=== PATIENT | female | born 1945 | race Caucasian/White ===

== ENCOUNTER 2018-12-01 19:26 | Inpatient (IN) | payer MEDICARE ==
[2018-12-01] MEDS ORDERED: morphine 4 MG/ML VIAL IV (22:33)
[2018-12-01 22:43] LABS: ADD MAN DIFF? NO
[2018-12-01 22:47] LABS: BASOPHILS % 0.5 % (0.0-2.0); EOSINOPHILS # 0.1 10^3/ul (0.0-0.5); EOSINOPHILS % 0.7 % (0.0-7.0); HEMATOCRIT 35.6 % (37.0-47.0); HEMOGLOBIN 11.3 g/dl (12.0-16.0); LYMPHOCYTES # 2.3 10^3/ul (0.8-2.9); LYMPHOCYTES % 29.6 % (15.0-51.0); MEAN CORPUSCULAR HEMOGLOBIN 26.2 pg (29.0-33.0); MEAN CORPUSCULAR HGB CONC 31.7 g/dl (32.0-37.0); MEAN CORPUSCULAR VOLUME 82.6 fl (82.0-101.0); MEAN PLATELET VOLUME 9.3 fl (7.4-10.4); MONOCYTE # 0.9 10^3/ul (0.3-0.9); MONOCYTES % 11.6 % (0.0-11.0); NEUTROPHIL # 4.4 10^3/ul (1.6-7.5); NEUTROPHILS % 57.3 % (39.0-77.0); PLATELET COUNT 404 10^3/UL (140-415); RED BLOOD COUNT 4.31 10^6/ul (4.20-5.40); RED CELL DISTRIBUTION WIDTH 13.1 % (11.5-14.5)
[2018-12-01 22:47] LABS: WHITE BLOOD COUNT 7.6 10^3/ul (4.8-10.8)
[2018-12-01] MEDS: LORAZEPAM 2 MG INJ IV (22:49)
[2018-12-01] MEDS: ONDANSETRON 4 MG INJ IV (22:49)
[2018-12-01 22:52] LABS: INR 1.01; PROTIME 13.4 Sec (11.9-14.9)
[2018-12-01 22:53] LABS: PARTIAL THROMBOPLASTIN TIME 31.7 Sec (23.0-35.0)
[2018-12-01 23:00] LABS: ANION GAP 13 (5-13); BLOOD UREA NITROGEN 16 mg/dl (7-20); CALCIUM 10.5 mg/dl (8.4-10.2); CARBON DIOXIDE 26 mmol/L (21-31); CHLORIDE 99 mmol/L (97-110); CREATININE 0.85 mg/dl (0.44-1.00); GLUCOSE 134 mg/dl (70-220); POTASSIUM 4.6 mmol/L (3.5-5.1); SODIUM 138 mmol/L (135-144)
[2018-12-01 23:10] LABS: TROPONIN-I < 0.012 ng/ml (0.000-0.120)
[2018-12-01 23:15] LABS: FREE THYROXINE INDEX (Calc) 2.57 ug/ml (0.65-3.89); T3 UPTAKE 29.9 % (23.5-40.5); T4 (THYROXINE) 8.6 ug/dl (5.5-11.0)
[2018-12-02] MEDS ORDERED: FAMOTIDINE 20 MG TAB PO (03:30)
[2018-12-02] MEDS ORDERED: NACL 0.9% 3 ML SYG IV (04:00)
[2018-12-02] MEDS ORDERED: BISACODYL (EC) 5 MG TAB PO (04:00)
[2018-12-02] MEDS ORDERED: ONDANSETRON 4 MG INJ IV (04:00)
[2018-12-02] MEDS ORDERED: NITROGLYCERIN (SL) 0.4 MG TAB SL (04:00)
[2018-12-02] MEDS ORDERED: DOCUSATE SODIUM 100 MG CAP PO (04:00)
[2018-12-02] MEDS: ACETAMINOPHEN 325 MG TAB PO (04:36)
[2018-12-02 04:49] LABS: HEMOGLOBIN A1C 6.5 % (0-5.9)
[2018-12-02 05:08] LABS: CREATINE KINASE 36 IU/L (23-200)
[2018-12-02 05:10] LABS: CHOLESTEROL 147 mg/dl (100-200)
[2018-12-02 05:10] LABS: CHOL/HDL RATIO 4.2 RATIO; HDL CHOLESTEROL 35 mg/dl (33-92); LDL CHOLESTEROL,CALCULATED 92 mg/dl; TRIGLYCERIDES 101 mg/dl (0-149)
[2018-12-02 05:13] LABS: IRON < 10 ug/dl (35-150)
[2018-12-02 05:18] LABS: TOTAL IRON BINDING CAPACITY 225 ug/dl (241-421)
[2018-12-02 05:19] LABS: MAGNESIUM 1.9 mg/dl (1.7-2.5)
[2018-12-02 05:21] LABS: CK INDEX 1.8; CK-MB 0.66 ng/ml (0.0-2.4); TROPONIN-I < 0.012 ng/ml (0.000-0.120)
[2018-12-02] MEDS ORDERED: LORAZEPAM 2 MG INJ IV (06:30)
[2018-12-02 07:01] LABS: RETICULOCYTE RBC 3.61
[2018-12-02 07:01] LABS: RETICULOCYTE COUNT # 0.031 X10^6 (0.020-0.110); RETICULOCYTE COUNT % 0.9 % (0.5-1.5)
[2018-12-02 07:28] LABS: LACTATE DEHYDROGENASE 413 IU/L (313-618)
[2018-12-02] MEDS ORDERED: LORAZEPAM 0.5 MG TAB PO (07:30)
[2018-12-02 11:17] LABS: CREATINE KINASE 34 IU/L (23-200)
[2018-12-02 11:29] LABS: CK INDEX 1.3; CK-MB 0.44 ng/ml (0.0-2.4); TROPONIN-I < 0.012 ng/ml (0.000-0.120)
[2018-12-02] MEDS ORDERED: SOD FERRIC GLUC COMPLX 125 MG in SOD CHLORIDE 0.9% 100 ML IVPB (13:00)
[2018-12-02] MEDS: morphine 2 MG INJ IV ×2 (15:25→19:55)
[2018-12-02 15:49] LABS: ADD UMIC YES; UR ASCORBIC ACID NEGATIVE (NEGATIVE); UR BILIRUBIN (Dip) NEGATIVE (NEGATIVE); UR BLOOD (Dip) 3+ mg/dL (NEGATIVE); UR CLARITY SLIGHTLY CLOUDY (CLEAR); UR COLOR YELLOW (YELLOW); UR GLUCOSE (Dip) NEGATIVE (NEGATIVE); UR KETONES (Dip) NEGATIVE (NEGATIVE); UR LEUKOCYTE ESTERASE (Dip) 3+ Leu/ul (NEGATIVE); UR NITRITE (Dip) NEGATIVE (NEGATIVE); UR RBC 13 /HPF (0-5); UR SQUAMOUS EPITHELIAL CELL FEW /HPF (FEW); UR TOTAL PROTEIN (Dip) NEGATIVE (NEGATIVE); UR UROBILINOGEN (Dip) NEGATIVE (NEGATIVE); UR WBC 36 /HPF (0-5)
[2018-12-02] MEDS: SOD FERRIC GLUC COMPLX 125 MG in SOD CHLORIDE 0.9% 100 ML IVPB (16:57)
[2018-12-02 18:10] LABS: CARCINOEMBRYONIC ANTIGEN 0.8 ng/ml (0.0-5.0)
[2018-12-02 18:10] LABS: CANCER ANTIGEN 125 7.3 U/ml (0.0-35.0)
[2018-12-02 18:14] LABS: CANCER ANTIGEN 19-9 85.4 U/ml (0.0-37.0)
[2018-12-02 19:21] LABS: IMMUNOGLOBULIN A 330 mg/dl (70-400); IMMUNOGLOBULIN G 1129 mg/dl (700-1600); IMMUNOGLOBULIN M 86 mg/dl (40-230)
[2018-12-03] MEDS: morphine 2 MG INJ IV (00:01)
[2018-12-03 05:32] LABS: ADD MAN DIFF? NO
[2018-12-03 05:45] LABS: BASOPHILS % 0.5 % (0.0-2.0); EOSINOPHILS # 0.1 10^3/ul (0.0-0.5); EOSINOPHILS % 1.6 % (0.0-7.0); HEMATOCRIT 31.6 % (37.0-47.0); HEMOGLOBIN 9.8 g/dl (12.0-16.0); LYMPHOCYTES # 1.8 10^3/ul (0.8-2.9); LYMPHOCYTES % 31.8 % (15.0-51.0); MEAN CORPUSCULAR HEMOGLOBIN 26.3 pg (29.0-33.0); MEAN CORPUSCULAR VOLUME 84.9 fl (82.0-101.0); MEAN PLATELET VOLUME 9.3 fl (7.4-10.4); MONOCYTE # 0.7 10^3/ul (0.3-0.9); MONOCYTES % 12.6 % (0.0-11.0); NEUTROPHIL # 3.1 10^3/ul (1.6-7.5); NEUTROPHILS % 53.3 % (39.0-77.0); PLATELET COUNT 314 10^3/UL (140-415); RED BLOOD COUNT 3.72 10^6/ul (4.20-5.40); RED CELL DISTRIBUTION WIDTH 12.8 % (11.5-14.5)
[2018-12-03 05:45] LABS: WHITE BLOOD COUNT 5.8 10^3/ul (4.8-10.8)
[2018-12-03 06:04] LABS: ALANINE AMINOTRANSFERASE 8 IU/L (13-69); ALBUMIN 3.5 g/dl (3.3-4.9); ALBUMIN/GLOBULIN RATIO 1.06; ALKALINE PHOSPHATASE 81 IU/L (42-121); ANION GAP 6 (5-13); ASPARTATE AMINO TRANSFERASE 13 IU/L (15-46); BILIRUBIN,INDIRECT 0.3 mg/dl (0-1.1); BILIRUBIN,TOTAL 0.3 mg/dl (0.2-1.3); BLOOD UREA NITROGEN 16 mg/dl (7-20); CALCIUM 9.9 mg/dl (8.4-10.2); CARBON DIOXIDE 30 mmol/L (21-31); CHLORIDE 103 mmol/L (97-110); CREATININE 0.89 mg/dl (0.44-1.00); GLUCOSE 113 mg/dl (70-220); POTASSIUM 4.8 mmol/L (3.5-5.1); SODIUM 139 mmol/L (135-144); TOTAL PROTEIN 6.8 g/dl (6.1-8.1)
[2018-12-03 06:09] LABS: IRON 33 ug/dl (35-150)
[2018-12-03 06:18] LABS: % IRON SATURATION 12 % SAT (22-52); TOTAL IRON BINDING CAPACITY 268 ug/dl (241-421)
[2018-12-03] MEDS: LIDOCAINE 1% (MDV) 20 ML INJ (10:48)
[2018-12-03] MEDS: SOD CHLORIDE 0.9% 500 ML (10:50)
[2018-12-03] MEDS: MIDAZOLAM 1 MG/ML 2 ML INJ (10:50)
[2018-12-03] MEDS: FENTAnyl 50 MCG/ML VIAL (11:20)
[2018-12-04 08:51] LABS: PROTEIN, TOTAL 4.6 g/dL (6.1-8.1)
[2018-12-04 11:56] LABS: ALBUMIN 2.2 g/dL (3.8-4.8); ALPHA-1-GLOBULINS 0.3 g/dL (0.2-0.3); ALPHA-2-GLOBULINS 0.8 g/dL (0.5-0.9); BETA 2 GLOBULINS 0.3 g/dL (0.2-0.5); BETA GLOBULINS 0.3 g/dL (0.4-0.6); GAMMA GLOBULINS 0.8 g/dL (0.8-1.7)
[2018-12-07 22:11] LABS: CANCER ANTIGEN 15-3 32 U/mL (<32)
== END 2018-12-03 13:50 | disposition home or self-care (01) | DRG 543 ==
LOC: E/R 19:26 → PP2 12-02 03:25
DX: C79.51 Secondary malignant neoplasm of bone (principal); C79.89 Secondary malignant neoplasm of other specified sites; D63.8 Anemia in other chronic diseases classified elsewhere; R51 Headache; M16.12 Unilateral primary osteoarthritis, left hip; F41.0 Panic disorder [episodic paroxysmal anxiety]; R07.9 Chest pain, unspecified; R59.1 Generalized enlarged lymph nodes; Z79.82 Long term (current) use of aspirin
CPT/HCPCS: 70450; 70552; 71045; 71250; 72192; 73500; 74176; 78306; 80048; 80053; 80061; 81001; 82378; 82550; 82553; 82728; 82784; 83036; 83540; 83615; 83735; 84155; 84165; 84436; 84443; 84479; 84484; 85025; 85045; 85610; 85730; 86300; 86301; 86304; 93005; A9503; G0378